=== PATIENT | female | born 2000 | race Caucasian/White ===

== ENCOUNTER 2024-07-20 19:26 | Emergency (ER) | payer OTHER ==
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
[2024-07-20 22:27] VITALS: BP 96/62; PULSE 60; RESP 16; TEMP 98.7; O2SAT 98
== END 2024-07-20 22:28 | disposition home or self-care (01) ==
LOC: ER 19:27
DX: S06.0X0A Concussion without loss of consciousness, initial encounter (principal); X58.XXXA Exposure to other specified factors, initial encounter; Y93.71 Activity, boxing; Y92.89 Other specified places as the place of occurrence of the external cause; Y99.8 Other external cause status
CPT/HCPCS: 99282; 99283